=== PATIENT | female | born 1965 | race Caucasian/White ===

== ENCOUNTER 2017-05-07 15:52 | Emergency (ER) | payer OTHER ==
[2017-05-07 16:00] VITALS: RESP 18; O2SAT 97
[2017-05-07] MEDS ORDERED: IPRATROPIUM/ALBUTEROL 3 ML DEYVIAL IH ONE (16:18)
--- NOTE | 2017-05-07 16:25 | EDPHY ---
H & P Time Seen by Provider: 05/07/17 16:03 HPI/ROS: This patient complains of URI symptoms coughing and chest tightness similar to an episode of bronchitis in the past. She explains that her symptoms started 2 days prior to arrival with nasal congestion, moderate sore throat and hoarse voice. 24 hours later she developed a dry hacking cough. With cough she experiences a burning pain in her chest extends up into her throat. A hoarse voice persists. She has had fevers at home with peak temperature so far of 101 yesterday morning. She took 600 mg of ibuprofen at 11:00 a.m. today with relief of fever. She notes no other exacerbating or alleviating factors. She has mild generalized myalgias associated with her symptoms. She denies any other acute complaints. She drove herself here by private vehicle for evaluation. ROS: Constitutional: As per HPI. No significant fatigue. HEENT: No facial pain. No difficulty swallowing food. No ear pain. Pulmonary: No pleuritic pain. No hemoptysis. No significant dyspnea. Cardiovascular: Burning chest pain as per HPI. No heart palpitations lightheadedness or lower extremity swelling or pain. GI: No nausea or vomiting Integumentary: No rash 7 point ROS is otherwise negative. Past Medical/Surgical History: Asthma like symptoms with prior URIs in the past-question asthma Family history of asthma family history is negative for coronary artery disease. Social History: The patient works as a REGULATORY LEAD at [employer] Smoking Status: Never smoked Physical Exam: Physical Exam Vital signs are normal except for hypertension-134/107 at triage. General: Pleasant morbidly obese 51-year-old female No acute distress HEENT: Nose: Clear discharge bilaterally. No sinus tenderness to percussion. Ears: External canals and tympanic membranes are clear with no erythema or abnormal findings bilaterally. Oropharynx: No erythema or exudates. Mild hoarse voice. No drooling or stridor. Eyes: Pupils equal and react to light. Extraocular motions are intact. Neck: Supple with no meningismus. No lymphadenopathy Lungs: Mild wheezing bilaterally. No rales or rhonchi. Cardiac: Regular rate and rhythm with no murmur gallop or rub. No peripheral edema. Skin: No rash or pallor. Neuro: Alert with no focal deficits noted. Initial differential diagnosis: Parainfluenza or similar viral illness. Influenza, reactive airway disease triggered from URI, viral bronchitis, laryngitis Constitutional: Initial Vital Signs Temperature (C) 37.1 C 05/07/17 15:53 Heart Rate 85 05/07/17 15:53 Respiratory Rate 18 05/07/17 15:53 Blood Pressure 134/107 H 05/07/17 15:53 O2 Sat (%) 97 05/07/17 15:53 O2 Delivery Mode Room Air Allergies/Adverse Reactions: gemfibrozil [Gemfibrozil] Allergy (Intermediate, Verified 10/13/11 12:37) simvastatin [From Zocor] Allergy (Verified 05/26/12 08:37) Home Medications: Medication Instructions Recorded Ibuprofen [Motrin (*)] 600 mg PO Q6 PRN #30 tab 10/13/11 Lisinopril [Zestril 20 mg (*)] 10/13/11 Lovastatin 20 10/13/11 Methocarbamol [Robaxin 750 mg (*)] 750 - 1,500 mg PO TID PRN #30 tab 10/13/11 Citalopram [celeXA 20 MG (RX)] 20 mg PO DAILY 05/26/12 Ondansetron Odt [Zofran Odt] 4 - 8 mg PO Q4PRN PRN #4 tab 05/26/12 Rizatriptan Benzoate [Maxalt Glass Blowing Lathe Operator] 5 - 10 mg PO Q2 PRN #6 tab.rapdis 05/26/12 Albuterol Hfa Anes Only [Proair 2 puffs IH Q4 PRN #1 mdi 05/07/17 Hfa Icu (*)] Fluticasone Hfa 220 Mcg [Flovent 2 puffs IH DAILY #1 mdi 05/07/17 220 MCG Hfa MDI (*)] MDM/Departure - MDM Diagnostics: Rapid influenza test is negative. Medications Given: Discontinued Medications Albuterol/Ipratropium (Duoneb) 3 ml IH EDNOW ONE Stop: 05/07/17 16:19 Last Admin: 05/07/17 16:25 Dose: 3 ml ED Course/Re-evaluation: At 4:40 p.m. after a DuoNeb the patient's chest tightness has resolved. Her cough is less frequent, her wheezes nearly resolved on exam and she feels improved. Recheck BP with appropriate sized cuff-normotensive at 113/68 Discussion: This patient likely has parainfluenza or similar virus causing her laryngitis and viral bronchitis. Currently, no clinical evidence to suggest lower respiratory infection or other complicating factors. By history it sounds like she likely has reactive airway disease in addition. Given this background history will provided Flovent steroid inhaler in addition to the albuterol. I counseled her to stay off of work until her fever has resolved for 24 hours or more. She will follow up with primary care physician for any ongoing symptoms. She understands the need to return emergency department should she have any significant worsening of symptoms despite treatment plan. - Depart Disposition: Home, Routine, Self-Care Clinical Impression: Viral bronchitis, Laryngitis Condition: Good Instructions: Laryngitis (ED), Acute Bronchitis (ED) Additional Instructions: Diagnoses: 1. Viral bronchitis 2. Laryngitis Plan: Humidifier Albuterol inhaler for cough, wheeze or shortness of breath Continue ibuprofen for fevers as needed No work until your fever has resolved for 24 hours or more. If your fever has resolved but your cough persists beyond the next week, then add Flovent steroid inhaler in addition to the albuterol and continue the Flovent for 10 days. Follow up with primary care physician for any ongoing symptoms. Return to the emergency department if you develop significant shortness of breath, high fevers despite ibuprofen, significant chest pain despite albuterol or other concerns. Stand Alone Forms: Work Excuse Prescriptions: Albuterol Hfa Anes Only [Proair Hfa Icu (*)] 2 puffs IH Q4 PRN #1 mdi PRN Reason: Wheezing Fluticasone Hfa 220 Mcg [Flovent 220 MCG Hfa MDI (*)] 2 puffs IH DAILY #1 mdi Referrals: Kylah Darnell CNM [Primary Care Provider] - As per Instructions
[2017-05-07 16:57] VITALS: BP 113/68; PULSE 84; TEMP 97.9
== END 2017-05-07 16:55 | disposition home or self-care (01) ==
LOC: CED 15:52
DX: J20.8 Acute bronchitis due to other specified organisms (principal); J04.0 Acute laryngitis
CPT/HCPCS: 87400-PO